=== PATIENT | female | born 1985 | race Caucasian/White ===

== ENCOUNTER 2020-03-16 00:24 | Emergency (ER) | payer OTHER ==
[~2020-03-16] VITALS: Ht 165.1 cm; Wt 93.9 kg
[2020-03-16] MEDS ORDERED: ONDANSETRON HCL INJ 2MG/ML 2ML 2 MG/ML VIAL IV STA (00:28)
[2020-03-16] MEDS ORDERED: PANTOPRAZOLE 40 MG 10ML VIAL IV STA (00:28)
[2020-03-16] MEDS ORDERED: BELLADONNA ALK/PHENOBARBITAL 5 ML UDC PO ONE (00:30)
[2020-03-16] MEDS ORDERED: LIDOCAINE VISC 2% SOLN 15 ML UDC PO ONE (00:30)
[2020-03-16] MEDS ORDERED: MAGNESIUM/ALUMINUM/SIMETHICONE 30 ML UDC PO ONE (00:30)
[2020-03-16] MEDS ORDERED: SODIUM CHLORIDE 0.9% 1000ML 1,000 ML ONE (00:41)
[2020-03-16] MEDS ORDERED: SODIUM CHLORIDE 0.9% 1000ML 1,000 ML IV ONE (00:45)
[2020-03-16 00:46] LABS: BASOPHILS # (AUTO) 0.1 (0.0-0.1); BASOPHILS % 0.7 % (0.0-1.0); EOSINOPHILS # (AUTO) 0.5 (0.0-0.4); EOSINOPHILS % 5.5 % (0.0-6.0); HEMATOCRIT 40.1 % (34.2-44.1); HEMOGLOBIN 13.5 g/dL (12.0-16.0); LYMPHOCYTES % 45.2 % (18.0-39.1); MEAN CORPUSCULAR HGB CONC 33.7 g/dL (31-35); MEAN CORPUSCULAR VOLUME 89.1 fL (81-99); MONOCYTES # (AUTO) 0.5 (0.2-0.8); NEUTROPHILS # (AUTO) 3.7 (2.1-6.9); NEUTROPHILS % 42.1 % (38.7-80.0); PLATELET COUNT 414 x10e3/uL (140-360)
--- NOTE | 2020-03-16 00:55 | Emergency Department Note ---
History of Present Illnes History of Present Illness Chief Complaint: Chest Pain History of Present Illness This is a 34 year old female with upper abd and chest pain starting ab out 30 minutes ago. pt has been doing a keto diet and also drinking ketopruvit as well, . Historian: Patient Arrival Mode: Car Onset (how long ago): minute(s) (30) Location: upper abd radiating into chest Quality: pain upper abd radiating into chest Radiation: other (upper abd pain radaiting to chest) Severity: moderate Onset quality: sudden Duration (how long): hour(s) (30 minuts ago) Timing of current episode: constant Progression: waxing and waning Chronicity: new Relieving factors: none Exacerbating factors: none Associated symptoms: nausea/vomiting (nausea without vomiting) Treatments prior to arrival: none Past Medical/Family History Physician Review I have reviewed the patient's past medical and family history. Any updates have been documented here. Past Medical History Recent Fever: No Clinical Suspicion of Infectio: No New/Unexplained Change in Ment: No Past Medical History: Asthma Past Surgical History: Social History Smoking Cessation: Never Smoker Counseling Performed: No Alcohol Use: Social Any Illegal Drug Use: No Family History Family history of heart diseas: No Other Last Tetanus: UTD Review of Systems Review of Systems Constitutional: no symptoms EENTM: no symptoms Cardiovascular: chest pain Respiratory: no symptoms Gastrointestinal: abdominal pain (upper abd), nausea Genitourinary: no symptoms Musculoskeletal: no symptoms Neurological: no symptoms Psychological: no symptoms Endocrine: no symptoms Hematological/Lymphatic: no symptoms Review of other systems All other systems reviewed and negative. Physical Exam Related Data Allergies: Coded Allergies: No Known Allergies (Unverified , 03/16/20) Triage Vital Signs Vital Signs Date Time Temp Pulse Resp B/P (MAP) Pulse Ox O2 Delivery O2 Flow Rate FiO2 03/16/20 00:26 97.7 72 18 119/89 99 Vital signs reviewed: Yes Physical Exam CONSTITUTIONAL Constitutional: well-developed, well-nourished HENT HENT: normocephalic, atraumatic, oropharynx clear/moist, nose normal HENT L/R: left ext ear normal, right ext ear normal EYES Eyes: PERRL, conjunctivae normal NECK Neck: ROM normal PULMONARY Pulmonary: effort normal, breath sounds normal CARDIOVASCULAR Cardiovascular: regular rhythm, heart sounds normal, capillary refill normal, normal rate GASTROINTESTINAL Abdominal: soft, bowel sounds normal, tender (moderate epigastric) GENITOURINARY Genitourinary: exam deferred SKIN Skin: warm, dry MUSCULOSKELETAL Musculoskeletal: ROM normal NEUROLOGICAL Neurological: alert, oriented x 3, no gross motor or sensory deficits PSYCHOLOGICAL Psychological: mood/affect normal, judgement normal Results Laboratory Laboratory Laboratory Tests Test 03/16/20 01:01 03/16/20 00:38 Urine Color Yellow (YELLOW) Urine Clarity Cloudy (CLEAR) Urine pH 7 (5 - 7) Urine Specific [place] >=1.030 (1.010-1.025) Urine Protein 1+ (NEGATIVE) Urine Glucose (UA) Negative (NEGATIVE) Urine Ketones Negative (NEGATIVE) Urine Blood 2+ (NEGATIVE) Urine Nitrite Negative (NEGATIVE) Urine Bilirubin Negative (NEGATIVE) Urine Urobilinogen 0.2 mg/dL (0.2 - 1) Urine Leukocyte Esterase Negative (NEGATIVE) Urine RBC 21-50 /HPF (0-5) Urine WBC 21-50 /HPF (0-5) Urine Epithelial Cells Moderate /LPF (NONE) Urine Bacteria Many /HPF (NONE) Urine Mucus Few (RARE) Urine Test Negative (NEGATIVE) Urine Opiates Screen Negative (NEGATIVE) Urine Methadone Screen Negative (NEGATIVE) Urine Barbiturates Screen Negative (NEGATIVE) Urine Phencyclidine Screen Negative (NEGATIVE) Urine Amphetamines Screen Negative (NEGATIVE) Urine Methamphetamines Screen Negative (NEGATIVE) Urine Benzodiazepines Screen Negative (NEGATIVE) Urine Cocaine Screen Negative (NEGATIVE) Urine Cannabinoids Screen Negative (NEGATIVE) White Blood Count 8.84 x10e3/uL (4.8-10.8) Red Blood Count 4.50 x10e6/uL (3.6-5.1) Hemoglobin 13.5 g/dL (12.0-16.0) Hematocrit 40.1 % (34.2-44.1) Mean Corpuscular Volume 89.1 fL (81-99) Mean Corpuscular Hemoglobin 30.0 pg (28-32) Mean Corpuscular Hemoglobin Concent 33.7 g/dL (31-35) Red Cell Distribution Width 12.0 % (11.7-14.4) Platelet Count 414 x10e3/uL (140-360) Neutrophils (%) (Auto) 42.1 % (38.7-80.0) Lymphocytes (%) (Auto) 45.2 % (18.0-39.1) Monocytes (%) (Auto) 6.0 % (4.4-11.3) Eosinophils (%) (Auto) 5.5 % (0.0-6.0) Basophils (%) (Auto) 0.7 % (0.0-1.0) Neutrophils # (Auto) 3.7 (2.1-6.9) Lymphocytes # (Auto) 4.0 (1.0-3.2) Monocytes # (Auto) 0.5 (0.2-0.8) Eosinophils # (Auto) 0.5 (0.0-0.4) Basophils # (Auto) 0.1 (0.0-0.1) Absolute Immature Granulocyte (auto 0.04 x10e3/uL (0-0.1) D-Dimer Quantitative (PE/DVT) 0.56 ug/mLFEU (0.00-0.45) Sodium Level 140 mmol/L (136-145) Potassium Level 3.4 mmol/L (3.5-5.1) Chloride Level 106 mmol/L (98-107) Carbon Dioxide Level 24 mmol/L (22-29) Anion Gap 13.4 mmol/L (8-16) Glucose Level 97 mg/dL (74-118) Bedside Glucose 121 mg/dL (70-120) Calcium Level 9.0 mg/dL (8.4-10.2) Total Bilirubin 0.3 mg/dL (0.2-1.2) Aspartate Amino Transf (AST/SGOT) 30 IU/L (5-34) Alanine Aminotransferase (ALT/SGPT) 23 IU/L (0-55) Creatine Kinase 112 IU/L (29-168) Creatine Kinase MB 0.50 ng/mL (0-5.0) Troponin I < 0.001 ng/mL (0-0.300) Total Protein 7.1 g/dL (6.5-8.1) Albumin 3.4 g/dL (3.5-5.0) Globulin 3.7 g/dL (2.3-3.5) Albumin/Globulin Ratio 0.9 (0.8-2.0) Amylase Level 56 U/L (25-125) Lipase 30 U/L (8-78) Laboratory Tests Test 03/16/20 00:38 Bedside Glucose 121 mg/dL (70-120) Lab results reviewed: Yes Laboratory comments pt d-dimer positive, ct chest pe procotol ordered pt also has a uti based on ua Imaging Imaging results reviewed: Yes Impressions Procedure: [id number] DX/CHEST SINGLE (PORTABLE) Exam Date: 03/16/20 Exam Time: 0120 REPORT STATUS: Signed EXAMINATION: CHEST SINGLE (PORTABLE) INDICATION: ^chest pain ^20200316 ^0120 ^Y COMPARISON: None FINDINGS: AP view TUBES and LINES: None. LUNGS: Lungs are well inflated. Lungs are clear. There is no evidence of pneumonia or pulmonary edema. PLEURA: No pleural effusion or pneumothorax. HEART AND MEDIASTINUM: The cardiomediastinal silhouette is unremarkable. BONES AND SOFT TISSUES: No acute osseous lesion. Soft tissues are unremarkable. UPPER ABDOMEN: No free air under the diaphragm. IMPRESSION: No acute thoracic radiographic abnormality. Signed by: Abdias Chavis MD on 03/16/2020 1:38 AM Dictated By: ABDIAS CHAVIS MD 7 Transcribed By: LOUISE on 03/16/20137 COPY TO: MIRANDA MURPHY MD~ Procedure: [id number] CT/CT CHEST W Exam Date: 03/16/20 Exam Time: 0230 REPORT STATUS: Signed EXAM: CT Chest WITH contrast 03/16/2020 2:30 AM INDICATION: Shortness of breath COMPARISON: None TECHNIQUE: Chest was scanned utilizing a multidetector helical scanner from the lung apex through the level of the adrenal glands without administration of IV contrast. Coronal and sagittal reformations were obtained. Routine protocol was performed. IV CONTRAST: 100 mL of Omnipaque 300 COMPLICATIONS: None RADIATION DOSE: Total DLP: 592 mGy*cm Estimated effective dose: (DLP x 0.014 x size factor) mSv CTDIvol has been reviewed. It is below the limits set by the Radiation Protocol Committee (RPC). Dose modulation, iterative reconstruction, and/or weight based adjustment of the mA/kV was utilized to reduce the radiation dose to as low as reasonably achievable. FINDINGS: LINES/ TUBES: None. LUNGS AND AIRWAYS: The lungs are unremarkable. Airways are normal. PLEURA: The pleural spaces are clear. HEART AND MEDIASTINUM: The thyroid gland is normal. No mediastinal, hilar or axillary lymphadenopathy. The heart is normal in size. There is no pericardial effusion. UPPER ABDOMEN: Unremarkable. BONES: The visualized bony thorax is within normal limits. SOFT TISSUES: Unremarkable. IMPRESSION: No acute thoracic abnormality. No pulmonary embolism. Signed by: Abdias Chavis MD on 03/16/2020 3:12 AM Dictated By: ABDIAS CHAVIS MD 1 Transcribed By: LOUISE on 03/16/20311 COPY TO: MIRANDA MURPHY MD~ Procedures 12 Lead ECG Interpretation Gut Cleaner: Interpreted by ED physician Rhythm: sinus rhythm Rate: normal (60) QRS axis: normal ST segments normal: Yes T waves normal: Yes Q waves: V1, V2 Clinical Impression: non-specific ECG Critical Care Time Subsequent provider I assumed direction of critical care for this patient from another provider of my specialty. Assessment & Plan Assessment & Plan Problems: (1) Gastritis (2) UTI (urinary tract infection) Assessment & Plan pt with upper abd pain radiating to chest, cbc,cmp, ekg, cxr, d-dimer, amylase, lipase, ua, cardiac enzymes ordered to eval for myocardial infarction, pancreatitis, pulmonary embolus, electrolyte abnormality, elevated lft's protonix 40 mg iv ordered gi cocktail po ordered zofran 4 mg iv ordered pt discharged with the following protonix 40 mg po daily #15 omnicef 300 mg po bid fo 10 days #20 zofran odt 4 mg 1sl q6 hours prn nausea #30 Reassessment Reassessment time: 03:18 Reassessment pt better after protonix and gi cocktail Depart Disposition: HOME, SELF-CARE Last Vital Signs Date Time Temp Pulse Resp B/P (MAP) Pulse Ox O2 Delivery O2 Flow Rate FiO2 03/16/20 00:48 52 16 120/87 100 03/16/20 00:26 97.7 Medications in the ED Ondansetron HCl 4 mg NOW STAT IV Last administered on 03/16/20at 00:40; Admin Dose 4 MG; Start 03/16/20 at 00:28; Stop 03/16/20 at 00:38; Status DC Pantoprazole Sodium 40 mg NOW STAT IV Last administered on 03/16/20at 00:40; Admin Dose 40 MG; Start 03/16/20 at 00:28; Stop 5/18/20 at 00:38; Status DC Magnesium Aluminum Silicate 30 ml ONCE ONCE PO Last administered on 03/16/20at 00:40; Admin Dose 30 ML; Start 03/16/20 at 00:30; Stop 03/16/20 at 00:37; Status DC Lidocaine HCl 20 ml ONCE ONCE PO Last administered on 03/16/20at 00:40; Admin Dose 20 ML; Start 03/16/20 at 00:30; Stop 03/16/20 at 00:37; Status DC Belladonna Alkaloids/ Phenobarbital 10 ml ONCE ONCE PO Last administered on 03/16/20at 00:40; Admin Dose 10 ML; Start 03/16/20 at 00:30; Stop 03/16/20 at 00:37; Status DC Sodium Chloride 1,000 ml @ 999 mls/hr Q1H1M ONCE IV Last administered on 03/16/20at 00:40; Admin Dose 999 MLS/HR; Start 03/16/20 at 00:45; Stop 03/16/20 at 01:45 Sodium Chloride 1,000 ml @ [facility] ONCE .ROUTE ; Start 03/16/20 at 00:41; Stop 03/16/20 at 00:35; Status DC MIRANDA MURPHY MD March 16, 2020 00:55
[2020-03-16 01:11] LABS: ALANINE AMINOTRANSFERASE 23 IU/L (0-55); ALBUMIN 3.4 g/dL (3.5-5.0); ALBUMIN/GLOBULIN RATIO 0.9 (0.8-2.0); ANION GAP 13.4 mmol/L (8-16); CARBON DIOXIDE 24 mmol/L (22-29); CHLORIDE 106 mmol/L (98-107); CREATINE KINASE 112 IU/L (29-168); GLUCOSE 97 mg/dL (74-118); POTASSIUM 3.4 mmol/L (3.5-5.1); SODIUM 140 mmol/L (136-145)
[2020-03-16 01:19] LABS: AMPHETAMINES SCREEN,URINE NEGATIVE (NEGATIVE); BENZODIAZEPINES SCREEN,URINE NEGATIVE (NEGATIVE); CLARITY,URINE CLOUDY (CLEAR); COLOR,URINE YELLOW (YELLOW); KETONES,URINE NEGATIVE (NEGATIVE); LEUKOCYTE ESTERASE ,URINE NEGATIVE (NEGATIVE); NITRITE,URINE NEGATIVE (NEGATIVE); PHENCYCLIDINE SCREEN,URINE NEGATIVE (NEGATIVE); PROTEIN,URINE DIPSTICK 1+ (NEGATIVE)
[2020-03-16 01:20] LABS: BILIRUBIN,URINE NEGATIVE (NEGATIVE); PREGNANCY TEST, URINE NEGATIVE (NEGATIVE); URINE UROBILINOGEN 0.2 mg/dL (0.2 - 1)
--- NOTE | 2020-03-16 01:41 | Diagnostic Imaging Report ---
EXAMINATION: CHEST SINGLE (PORTABLE) INDICATION: ^chest pain ^20200316 ^0120 ^Y COMPARISON: None FINDINGS: AP view TUBES and LINES: None. LUNGS: Lungs are well inflated. Lungs are clear. There is no evidence of pneumonia or pulmonary edema. PLEURA: No pleural effusion or pneumothorax. HEART AND MEDIASTINUM: The cardiomediastinal silhouette is unremarkable. BONES AND SOFT TISSUES: No acute osseous lesion. Soft tissues are unremarkable. UPPER ABDOMEN: No free air under the diaphragm. IMPRESSION: No acute thoracic radiographic abnormality. Signed by: Yordan Mccabe MD on 03/16/2020 1:38 AM
[2020-03-16 01:49] LABS: AMYLASE 56 U/L (25-125); LIPASE 30 U/L (8-78)
[2020-03-16 01:52] LABS: BACTERIA,URINE MANY /HPF; EPITHELIAL CELLS,URINE MODERATE /LPF; MUCUS,URINE FEW (RARE); RBC,URINE 21-50 /HPF (0-5)
[2020-03-16 01:53] LABS: WBC,URINE (MAN) 21-50 /HPF (0-5)
[2020-03-16 02:20] LABS: ALKALINE PHOSPHATASE 37 IU/L (40-150); BLOOD UREA NITROGEN 8 mg/dL (7-26); BUN/CREATININE RATIO 10 (6-25); CREATININE, SERUM 0.82 mg/dL (0.57-1.11); EST GLOMERULAR FILTRATION RATE > 60 ML/MIN (60-)
[2020-03-16] MEDS ORDERED: IOPAMIDOL 370 MG/ML 200 ML INFUS..BTL INJ ONE (02:30)
[2020-03-16] MEDS ORDERED: SODIUM CHLORIDE 0.9% 50ML 50 ML ONE (02:30)
--- NOTE | 2020-03-16 03:16 | Diagnostic Imaging Report ---
EXAM: CT Chest WITH contrast 03/16/2020 2:30 AM INDICATION: Shortness of breath COMPARISON: None TECHNIQUE: Chest was scanned utilizing a multidetector helical scanner from the lung apex through the level of the adrenal glands without administration of IV contrast. Coronal and sagittal reformations were obtained. Routine protocol was performed. IV CONTRAST: 100 mL of Omnipaque 300 COMPLICATIONS: None RADIATION DOSE: Total DLP: 592 mGy*cm Estimated effective dose: (DLP x 0.014 x size factor) mSv CTDIvol has been reviewed. It is below the limits set by the Radiation Protocol Committee (RPC). Dose modulation, iterative reconstruction, and/or weight based adjustment of the mA/kV was utilized to reduce the radiation dose to as low as reasonably achievable. FINDINGS: LINES/ TUBES: None. LUNGS AND AIRWAYS: The lungs are unremarkable. Airways are normal. PLEURA: The pleural spaces are clear. HEART AND MEDIASTINUM: The thyroid gland is normal. No mediastinal, hilar or axillary lymphadenopathy. The heart is normal in size. There is no pericardial effusion. UPPER ABDOMEN: Unremarkable. BONES: The visualized bony thorax is within normal limits. SOFT TISSUES: Unremarkable. IMPRESSION: No acute thoracic abnormality. No pulmonary embolism. Signed by: Yordan Mccabe MD on 03/16/2020 3:12 AM
[2020-03-16 03:22] VITALS: BP 132/90
== END 2020-03-16 03:35 | disposition home or self-care (01) ==
LOC: ER 00:24
DX: R10.10 Upper abdominal pain, unspecified (principal); K29.70 Gastritis, unspecified, without bleeding; N39.0 Urinary tract infection, site not specified
CPT/HCPCS: 36415; 71045; 71260; 80053; 80307; 81001; 81025; 82150; 82550; 82553; 82948; 83690; 84484; 85025; 85379; 93005; 99284; J2405; J7030; Q9967

== ENCOUNTER 2025-03-08 20:24 | Emergency (ER) | payer OTHER ==
[~2025-03-08] VITALS: Ht 165.1 cm; Wt 99.8 kg
[~2025-03-08 20:24] MED LIST: CLARITIN10 MG PO; METOPROLOL TART25 MG PO
[2025-03-08 21:00] VITALS: PULSE 84; RESP 18; TEMP 98.9
[2025-03-08 21:39] LABS: BASOPHILS # (AUTO) 0.1 (0.0-0.1); BASOPHILS % 0.6 % (0.0-1.0); EOSINOPHILS # (AUTO) 0.3 (0.0-0.4); EOSINOPHILS % 2.5 % (0.0-6.0); HEMATOCRIT 40.6 % (34.2-44.1); HEMOGLOBIN 14.3 g/dL (12.0-16.0); LYMPHOCYTES # (AUTO) 2.6 (1.0-3.2); LYMPHOCYTES % 24.3 % (18.0-39.1); MEAN CORPUSCULAR HGB CONC 35.2 g/dL (31-35); MEAN CORPUSCULAR VOLUME 88.1 fL (81-99); MONOCYTES # (AUTO) 0.6 (0.2-0.8); NEUTROPHILS # (AUTO) 7.1 (2.1-6.9); NEUTROPHILS % 66.3 % (38.7-80.0); PLATELET COUNT 457 x10e3/uL (140-360); RED BLOOD COUNT 4.61 x10e6/uL (3.6-5.1); RED CELL DISTRIBUTION WIDTH 12.3 % (11.7-14.4); WHITE BLOOD COUNT 10.72 x10e3/uL (4.8-10.8)
[2025-03-08] MEDS: SODIUM CHLORIDE 0.9% 1000ML 1,000 ML IV STA (21:43)
[2025-03-08 22:00] LABS: ALANINE AMINOTRANSFERASE 31 IU/L (0-55); ALBUMIN 3.5 g/dL (3.5-5.0); ALBUMIN/GLOBULIN RATIO 0.9 (0.8-2.0); ALKALINE PHOSPHATASE 48 IU/L (40-150); ANION GAP 14.7 mmol/L (8-16); BILIRUBIN,TOTAL 0.4 mg/dL (0.2-1.2); BLOOD UREA NITROGEN 8 mg/dL (7-26); BUN/CREATININE RATIO 11 (6-25); CALCIUM 8.8 mg/dL (8.4-10.2); CARBON DIOXIDE 21 mmol/L (22-29); CHLORIDE 107 mmol/L (98-107); CREATINE KINASE 170 IU/L (29-168); CREATININE, SERUM 0.71 mg/dL (0.57-1.11); EST GLOMERULAR FILTRATION RATE 112 ML/MIN (>=60); GLUCOSE 85 mg/dL (74-118); POTASSIUM 3.7 mmol/L (3.5-5.1); SODIUM 139 mmol/L (136-145); TOTAL PROTEIN 7.5 g/dL (6.5-8.1)
[2025-03-08 22:15] LABS: TROPONIN I < 0.001 ng/mL (0-0.300)
[2025-03-08] MEDS: HYDRALAZINE HCL 20 MG/ML VIAL IV STA (23:56)
[2025-03-09] MEDS ORDERED: DIPHENHYDRAMINE HCL INJ 50 MG/ML VIAL IV STA (00:41)
[2025-03-09] MEDS: ACETAMINOPHEN 325 MG TAB PO STA (00:53)
[2025-03-09] MEDS: METOCLOPRAMIDE HCL 10 MG/2ML VIAL IV STA (00:54)
[2025-03-09] MEDS ORDERED: FIORICET 50-301 EACH PO (01:19)
[2025-03-09 01:29] VITALS: BP 137/101; O2SAT 100
== END 2025-03-09 01:30 | disposition home or self-care (01) ==
LOC: ER 20:55
DX: R20.2 Paresthesia of skin (principal); R07.89 Other chest pain; I16.0 Hypertensive urgency; R51.9 Headache, unspecified; I10 Essential (primary) hypertension; J45.909 Unspecified asthma, uncomplicated
CPT/HCPCS: 36415; 70450; 71045; 80053; 82550; 83690; 83880; 84484; 84702; 85025; 93005; 99284; J0360; J2765; J7030; J1200